=== PATIENT | male | born 1950 | race Hispanic/Latino ===

== ENCOUNTER 2021-01-08 08:52 | Day surgery (SDC) | payer MEDICARE ==
[2021-01-08] MEDS ORDERED: SODIUM CHLORIDE 0.9% 1000 ML 1,000 ML IV SCH (09:45)
[2021-01-08 10:19] LABS: Hematocrit 32.1 % (35.5-45.6); Hemoglobin 10.8 gm/dl (11.8-15.2); Mean Corpuscular HGB Conc 34 % (32-34); Mean Corpuscular Volume 85 fl (84-94); Platelet Count 207 K/mm3 (140-440); Red Blood Count 3.77 M/mm3 (3.65-5.03)
[2021-01-08 10:21] LABS: Red Cell Distribution Width 20.7 % (13.2-15.2)
[2021-01-08 10:31] LABS: Calcium 8.8 mg/dL (8.4-10.2)
[2021-01-08 11:29] LABS: INR 1.1 (0.87-1.13)
[2021-01-08] MEDS ORDERED: LIDOCAINE 1%/EPINEPHRINE 1:100,000 VIAL (20 ML) INFILTRATI ONE (11:34)
[2021-01-08] MEDS ORDERED: HEPARIN/NS 5000 UNIT/500ML 1,000 ML IR ONE (11:34)
[2021-01-08] MEDS ORDERED: HEPARIN 10,000 UNITS/10 ML VIAL ONE (11:34)
--- NOTE | 2021-01-08 11:36 | Short Stay Summary ---
Short Stay Documentation Date of service: 01/08/21 Narrative H&P: 70-year-old male who has multiple medical issues including critical limb ischemia of the left lower extremity. - History Principal diagnosis: Critical limb ischemia of left lower extremity H&P: obtained from office - Allergies and Medications Current Medications: Allergies No Known Allergies Allergy (Unverified 06/08/20 18:45) Home Medications Medication Instructions Recorded Confirmed Last Taken Type Gabapentin 300 mg PO TID 06/09/20 01/08/21 01/08/21 07:00 History Iron 65 mg PO DAILY 06/09/20 01/08/21 01/07/21 History 65 mg Mesalamine 1.25 g PO BID 06/09/20 01/08/21 01/08/21 History 1.25gm Vitamin B-12 1,000 mcg PO DAILY 06/09/20 01/08/21 01/08/21 History 1000 mcg Warfarin [Coumadin] 3.5 mg PO DAILY@1700 #30 tablet 07/17/20 01/08/21 01/03/21 Rx 3.5mg Clopidogrel [Plavix] 75 mg PO QDAY #30 tablet 10/17/20 01/08/21 01/08/21 07:00 Rx AtorvaSTATin [Lipitor] 20 mg PO DAILY 01/08/21 01/08/21 01/08/21 History 20 mg Enoxaparin 0.8 ml SQ BID 01/08/21 01/08/21 01/07/21 History 0.8ml Furosemide [Lasix TAB] 40 mg PO DAILY 01/08/21 01/08/21 01/08/21 History 40 mg cilostazoL [Pletal] 100 mg PO DAILY 01/08/21 01/08/21 01/08/21 History 100 mg glipiZIDE [Glucotrol] 5 mg PO DAILY 01/08/21 01/08/21 01/07/21 History 5 mg hydrALAZINE [Apresoline TAB] 25 mg PO TID 01/08/21 01/08/21 01/08/21 History 25 mg Active Medications Cefazolin Sodium (Cefazolin/Sterile Water 2 Gm/20 Ml Syringe) 2 gm IV PREOP NR Stop: 01/08/21 23:59 Sodium Chloride (Nacl 0.9% 1000 Ml) 1,000 mls @ 150 mls/hr IV DIRECT HERRERA Last Admin: 01/08/21 10:04 Dose: 150 mls/hr Documented by: - Physical exam General appearance: no acute distress Lungs: Normal air movement Heart: Regular rate Gastrointestinal: normal Extremities: no ischemia, no pulses intact (Nonpalpable pedal pulses), abnormal (Nonhealing ulceration on the left lateral foot) - Brief post op/procedure progress note Date of procedure: 01/08/21 Pre-op diagnosis: CLI of the LLE Post-op diagnosis: same Procedure: 1. Ultrasound-guided access of the right common femoral artery. 2. Angiography of the right lower extremity. 3. Selection of the abdominal aorta with aortography (clinical change) 4. Selection of the left external iliac artery, common femoral artery, superficial femoral artery, and popliteal artery with angiography of the left lower extremity (clinical change) 5. Angioplasty of the left proximal superficial femoral artery, distal superficial femoral artery, and [id number]-[id number] popliteal artery with a 6 mm x 150 mm iNPACT balloon 6. Stenting of the left distal superficial femoral artery with a 7 mm x 40 mm ever flex stent postdilated with a 6 mm x 120 mm angioplasty balloon 7. Angioplasty of the left distal common iliac artery with a 7 mm x 40 mm angioplasty balloon and 8 mm x 40 mm angioplasty balloon Anesthesia: local (w/ conscious sedation) Surgeon: CLOVER WINKLER Estimated blood loss: minimal Condition: stable - Hospital course Hospital course: Tolerated procedure well. No immediate post procedural complications. 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 Status: Acute (3) Diabetes mellitus Status: Acute (4) Diabetic foot ulcer Status: Acute Short Stay Discharge Plan Activity: advance as tolerated (do not lift more than 10 lbs ) Weight Bearing Status: Weight Bear as Tolerated Diet: regular Wound: keep clean and dry (take off compresive bandage on 01/09/2021 in AM) Follow up with: CLOVER WINKLER MD [Staff Physician] - 7 Days Forms: Post Arteriogram Instruct Prescriptions: HYDROcodone/APAP 5-325 [[place] 5/325] 1 each PO Q6HR PRN #25 tablet PRN Reason: Pain Clopidogrel [Plavix] 75 mg PO QDAY #90 tablet cilostazoL [Pletal] 100 mg PO BID #180 tablet Pantoprazole [Protonix TAB] 40 mg PO QDAY #90 tablet
[2021-01-08] MEDS ORDERED: SODIUM CHLORIDE 0.9% 1000 ML 1,000 ML ONE (11:45)
[2021-01-08] MEDS: MIDAZOLAM 2 MG/2 ML INJ ONE ×3 (12:02→12:14)
[2021-01-08] MEDS: fentaNYL 100 MCG/2 ML INJ ONE ×3 (12:02→12:14)
[2021-01-08] MEDS: ceFAZolin/STERILE WATER 2 GM/20 ML SYRINGE IV NR ×2 (12:03→12:06)
[2021-01-08] MEDS ORDERED: ceFAZolin/Water 2 GM/20 ML 2 GM/20 ML SYRINGE IV ONE (12:04)
[2021-01-08] MEDS ORDERED: MIDAZOLAM 2 MG/2 ML INJ ONE (12:23)
[2021-01-08] MEDS ORDERED: fentaNYL 100 MCG/2 ML INJ ONE (12:24)
--- NOTE | 2021-01-08 13:45 | Post Operative Note ---
Date of procedure: 01/08/21 Pre-op diagnosis: CLI LLE Post-op diagnosis: same Procedure: 1. Ultrasound-guided access of the right common femoral artery. 2. Angiography of the right lower extremity. 3. Selection of the abdominal aorta with aortography (clinical change) 4. Selection of the left external iliac artery, common femoral artery, superficial femoral artery, and popliteal artery with angiography of the left lower extremity (clinical change) 5. Angioplasty of the left proximal superficial femoral artery, distal superficial femoral artery, and [id number] popliteal artery with a 6 mm x 150 mm iNPACT balloon 6. Stenting of the left distal superficial femoral artery with a 7 mm x 40 mm ever flex stent postdilated with a 6 mm x 120 mm angioplasty balloon 7. Angioplasty of the left distal common iliac artery with a 7 mm x 40 mm angioplasty balloon and 8 mm x 40 mm angioplasty balloon Anesthesia: local (With conscious sedation) Surgeon: CLOVER WINKLER Estimated blood loss: minimal Condition: stable (2)
--- NOTE | 2021-01-08 13:46 | Operative Report ---
Operative Report Operative Report: EXAM: 1. Ultrasound-guided access of the right common femoral artery. 2. Angiography of the right lower extremity. 3. Selection of the abdominal aorta with aortography (clinical change) 4. Selection of the left external iliac artery, common femoral artery, superficial femoral artery, and popliteal artery with angiography of the left lower extremity (clinical change) 5. Angioplasty of the left proximal superficial femoral artery, distal superficial femoral artery, and khrye-rkn-bkzw popliteal artery with a 6 mm x 150 mm iNPACT balloon 6. Stenting of the left distal superficial femoral artery with a 7 mm x 40 mm ever flex stent postdilated with a 6 mm x 120 mm angioplasty balloon 7. 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 He previously had revascularization but then had a relapse of COVID and was temporarily lost to followup. He has represented with a nonhealing wound of the left lateral foot. MEDICATIONS: Please see nursing report for full details. DEVICES: 6 mm x 120 mm angioplasty balloon 6 mm x 150 mm iNPACT balloon 7 mm x 40 mm Everflex stent 7 mm x 40 mm angioplasty balloon 8 mm x 40 mm angioplasty baloon CONTRAST: Please see catheter report for full details; patient was hydrated prior to procedure PROCEDURE: The risks, benefits, and alternatives were discussed with the patient; written informed consent was obtained. The patient was brought to the angiography suite in stable condition. The groins were prepped and draped in a stable fashion. Ultrasound and fluoroscopy was used to identify the right common femoral artery. The right common femoral artery was patent. Under direct ultrasound guidance, right common femoral artery was accessed with a 21-gauge micropuncture needle. 0.018 inch wire was passed into the aorta. Needle was exchanged for transitional dilator. Wire was exchanged for a 0.035 inch wire. Transitional dilator was exchanged for a 5 [place] sheath. Digital subtraction angiography was performed demonstrating a patent right external iliac artery, some irregularity within the common femoral artery compatible with multiples eccentric calcifications, and plaque at the bifurcation extending into both the proximal superficial femoral artery and profunda femoral artery. This resulted in 90% narrowing of both of these vessels. There is at least 30 to 40% narrowing of the right common femoral artery. The puncture was appropriate, above the bifurcation and below the inferior epigastric artery. Catheter was used to select the abdominal aorta and digital subtraction angiography was performed. Catheter was used to select the left iliac artery, common femoral artery, superficial femoral artery, and popliteal artery and digital subtraction angiography was performed. 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 The right common iliac artery was patent. The left common iliac artery had a distal 60% narrowing near an area of ectasia. The left external iliac artery had intermittent 20 to 30% narrowings. The left common femoral artery has 20% narrowing. The left profunda femoral artery was patent. The left proximal superficial femoral artery had a nonflow limiting dissection in 30% narrowing. The left mid superficial femoral artery was patent. The distal superficial femoral artery which had a 90% irregularity and narrowing with a adjacent 40% narrowing. The ncilq-dxd-[id number] popliteal artery to mid knee popliteal artery had a 40% narrowing. The below-knee popliteal artery was patent. There is a single-vessel runoff through the peroneal artery which is patent and provides flow to the foot through the anterior and posterior communicating branches. The dorsalis pedis is atretic, but the posterior tibial artery is of reasonable size and the common plantar and medial lateral plantar vessels are patent. The tibioperoneal trunk is patent. The posterior tibial artery occludes proximately 5 cm after takeoff. The anterior tibial artery occludes a few centimeters after takeoff. The patient was heparinized. Sheath was exchanged for a 6 [place] Gay destination positioned in the left common femoral artery. 6 mm x 150 mm iNPACT balloon was used to perform angioplasty of the distal superficial femoral artery, above the knee popliteal artery to mid popliteal artery at the area of 40% narrowing, and proximal superficial femoral artery. Digital subtraction angiography demonstrated resolution of the narrowing of the left proximal superficial femoral artery and resolution of the dissection. The distal superficial femoral artery demonstrates 30 to 40% residual narrowing of the narrowing at the distal superficial femoral artery with residual dissection, and 20% residual narrowing of the above-knee to mid knee popliteal artery. I decided to stent the area of residual dissection with residual narrowing with a 7 mm x 40 mm EverFlex stent which was then postdilated with a 6 mm x 120 mm angioplasty balloon. Digital subtraction angiography was performed demonstrating no residual narrowing of the superficial femoral artery and 20% residual narrowing of the above-knee to mid knee popliteal artery. Digital subtraction angiography was performed demonstrating unchanged runoff of the peroneal artery. Sheath was then retracted to the left proximal common iliac artery. 7 mm x 40 mm angioplasty balloon was used to perform angioplasty of the left distal common iliac artery. Digital subtraction angiography demonstrated 30% residual narrowing. 8 mm x 40 mm angioplasty balloon was used to perform angioplasty of the left distal common iliac artery. Digital subtraction angiography demonstrated 20% or less residual narrowing. At this point, all wires, catheters, and sheaths were retracted to the right external iliac artery sheath was exchanged for a standard 6 Macedonian sheath and ACT was obtained which was elevated. Sheath was then sutured in place and obturator was placed. Once ACT reached protocol level for removal, sheath was removed and pressure was held until hemostasis was achieved. Patient was then kept for 4 hours afterwards. Patient tolerated the procedure well. No immediate postprocedural complication. FINDINGS: Please see procedure note above. IMPRESSION: Successful stenting of the left superficial femoral artery with angioplasty Successful angioplasty of the left common iliac artery Successful ultrasound-guided access of the right common femoral artery Successful angiography of the left lower extremity (clinical change)
[2021-01-08] MEDS ORDERED: HYDROcodone/ACETAMINOPHEN 5-325 MG TAB PO ONE (17:41)
[2021-01-08 18:07] VITALS: BP 151/66
[2021-01-08] MEDS ORDERED: CLOPIDOGREL 75 MG TAB ONE (18:09)
[2021-01-08] MEDS ORDERED: CLOPIDOGREL 75 MG TAB PO ONE (18:11)
== END 2021-01-08 18:32 | disposition home or self-care (01) ==
LOC: CATHLABREC 08:52
PROVIDERS: ATTEND Radiology Diagnostic Radiology
DX: I70.244 Atherosclerosis of native arteries of left leg with ulceration of heel and midfoot (principal); I70.213 Atherosclerosis of native arteries of extremities with intermittent claudication, bilateral legs; E11.51 Type 2 diabetes mellitus with diabetic peripheral angiopathy without gangrene; I12.0 Hypertensive chronic kidney disease with stage 5 chronic kidney disease or end stage renal disease; E11.22 Type 2 diabetes mellitus with diabetic chronic kidney disease; N18.6 End stage renal disease; D64.9 Anemia, unspecified; Z79.899 Other long term (current) drug therapy; Z79.01 Long term (current) use of anticoagulants; Z87.891 Personal history of nicotine dependence; Z95.2 Presence of prosthetic heart valve; Z87.01 Personal history of pneumonia (recurrent); Z98.890 Other specified postprocedural states
CPT/HCPCS: 36415; 37220; 37226; 75625; 75710; 80048; 85027; 85347; 85610; 99156; 99157; C1725; C1769; C1876; C1887; C1894; C2623; J0690; J1644; J2250; J3010; J7030; Q9967